=== PATIENT | female | born 1995 | race Caucasian/White ===

== ENCOUNTER 2016-12-11 13:05 | Emergency (ER) | payer SELFPAY ==
[~2016-12-11] VITALS: Ht 165.1 cm; Wt 54.4 kg
[2016-12-11 13:45] VITALS: BP 145/87
[2016-12-11] MEDS ORDERED: BACITRACIN TOP OINT 1 UD PKG TOP ONE (13:45)
[2016-12-11] MEDS ORDERED: TETANUS-DIPTH-ACEL PERTUSSIS 0.5ML SYRG IM ONE (13:45)
== END 2016-12-11 14:19 | disposition home or self-care (01) ==
LOC: ER 13:13
DX: S00.211A Abrasion of right eyelid and periocular area, initial encounter (principal); R10.9 Unspecified abdominal pain; V49.50XA Passenger injured in collision with unspecified motor vehicles in traffic accident, initial encounter; Y93.89 Activity, other specified; Y92.410 Unspecified street and highway as the place of occurrence of the external cause; Y99.8 Other external cause status
CPT/HCPCS: 90471; 90715

== ENCOUNTER 2021-10-27 10:38 | Emergency (ER) | payer MEDICAID, OTHER ==
[~2021-10-27] VITALS: Ht 165.1 cm; Wt 61.2 kg
[2021-10-27 11:45] VITALS: BP 134/92
[2021-10-27] MEDS ORDERED: CEPH500C PO (12:33)
[2021-10-27] MEDS ORDERED: IBUP600T28 PO (12:33)
== END 2021-10-27 12:47 | disposition home or self-care (01) ==
LOC: ER 10:38
DX: S63.502A Unspecified sprain of left wrist, initial encounter (principal); S60.522A Blister (nonthermal) of left hand, initial encounter; V80.010A Animal-rider injured by fall from or being thrown from horse in noncollision accident, initial encounter; Y93.89 Activity, other specified; Y92.89 Other specified places as the place of occurrence of the external cause; Y99.8 Other external cause status
CPT/HCPCS: 73110